=== PATIENT | male | born 1960 | race Caucasian/White ===

== ENCOUNTER 2017-01-10 09:51 | Emergency (ER) | payer OTHER ==
[2017-01-10 09:56] VITALS: BMI 27.8
--- NOTE | 2017-01-10 10:43 | PDOC ---
History of Present Illness - General Chief Complaint: Abscess Boil Stated Complaint: CYST/ GROIN Time Seen by Provider: 01/10/17 10:04 History Source: Patient Exam Limitations: No Limitations - History of Present Illness Initial Comments: CHIEF COMPLAINT: 56 y/o afebrile male with PMH DM c/o left groin abscess. HISTORY OF PRESENT ILLNESS: The patient states the abscess has been getting bigger over the last 3 days and drained a little bit of fluid today. His family member knows Dr. Manley who told him to come here and he would drain it for him. The patient does admit he has had an abscess in the past for which he was hospitalized for over 1 week. He does admit he feels feverish today. He denies chills, SALAZAR, n/v/d, CP, SOB, abd pain, back pain, streaking. Vital signs on arrival are within normal limits. REVIEW OF SYSTEMS: GENERAL/CONSTITUTIONAL: Subjective fever. No chills. No weakness. No weight change. HEAD, EYES, EARS, NOSE AND THROAT: No change in vision. No ear pain or discharge. No sore throat. CARDIOVASCULAR: No chest pain or shortness of breath. RESPIRATORY: No cough, wheezing, or hemoptysis. GASTROINTESTINAL: No abd pain, nausea, vomiting, diarrhea. GENITOURINARY: No dysuria, frequency, or change in urination. MUSCULOSKELETAL: No joint or muscle swelling or pain. No neck or back pain. SKIN: +left groin abscess. NEUROLOGIC: No headache, vertigo, loss of consciousness, or loss of sensation. PHYSICAL EXAM: GENERAL: The patient is awake, alert, and fully oriented, in no acute distress. HEAD: Normal with no signs of trauma. ENT: Pupils equal, round and reactive to light, extraocular movements intact, sclera anicteric, conjunctiva clear. Neck supple. LUNGS: Clear to auscultation bilaterally. Normal excursion. No respiratory distress or use of accessory muscles. CV: RRR, S1/S2, no MRG. Cap refill < 2 sec. ABDOMEN: Soft, non-distended, non-tender even to deep palpation, no hepatomegaly or splenomegaly, no masses. EXTREMITIES: Normal range of motion, no edema. NEUROLOGICAL: Normal speech, normal gait. CN II-XII grossly intact. SKIN: +fluctuant left groin abscess Past History - Past Medical History Allergies/Adverse Reactions: Allergies Allergy/AdvReac Type Severity Reaction Status Date / Time No Known Allergies Allergy Verified 01/10/17 09:55 Home Medications: Ambulatory Orders Amoxicillin/Potassium Clav [Augmentin 875-125 Tablet] 1 each PO BID 01/10/17 Empagliflozin [Jardiance] 25 mg PO DAILY 01/10/17 Levothyroxine [Synthroid -] 100 mcg PO DAILY 01/10/17 Linagliptin/Metformin HCl [Jentadueto 2.5 mg-1000 mg Tab] 1 each PO BID Oxycodone HCl/Acetaminophen [Percocet 5-325 mg Tablet] 1 tab PO Q6H #10 tablet MDD 5 01/10/17 Rosuvastatin Calcium [Crestor] 40 mg PO DAILY 01/10/17 Diabetes: Yes - Surgical History Cholecystectomy: Yes - Psycho/Social/Smoking Cessation Hx Anxiety: No Suicidal Ideation: No Smoking History: Never smoked Hx Alcohol Use: Yes (SOCIAL) Drug/Substance Use Hx: No Substance Use Type: None *Physical Exam - Vital Signs Last Vital Signs Temp Pulse Resp BP Pulse Ox 98.0 F 82 20 140/88 99 01/10/17 09:52 01/10/17 09:52 01/10/17 09:52 01/10/17 09:52 01/10/17 09:52 Medical Decision Making - Medical Decision Making A/P: 56 y/o with left groin abscess. Dr. Manley is coming in to the ER to I&D the abscess. Dr. Manley performed I&D of the abscess without difficulty. He states the patient is already taking Augmentin so no need for antibiotics. he would like me to send rx for Percocet for pain. Pt was instructed to return to the ER with any worsening or concerning symptoms. The patient verbalizes understanding of all instructions, has no further questions and is awaiting discharge. *DC/Admit/Observation/Transfer Diagnosis at time of Disposition: Abscess of left groin - Discharge Dispostion Disposition: HOME Condition at time of disposition: Improved - Referrals Referrals: Jacey Guerrier [Primary Care Provider] - Ted Manley MD [Staff Physician] - - Patient Instructions Printed Discharge Instructions: DI for Incision and Drainage of a Skin Abscess Additional Instructions: Discharge Instructions: -Continue taking Augmentin -A prescription for pain medication as been sent to your pharmacy; it may cause drowsiness -Follow up with Dr. Manley as instructed -Return to the ER with any worsening or concerning symptoms
[2017-01-10] MEDS ORDERED: HYDROmorphone HCL CARPU-JECT 1 MG/1 ML DISP.SYRIN ONE (11:21)
--- NOTE | 2017-01-10 12:06 | PDOC ---
*Physical Exam - Vital Signs Last Vital Signs Temp Pulse Resp BP Pulse Ox 98.0 F 82 20 140/88 99 01/10/17 09:52 01/10/17 09:52 01/10/17 09:52 01/10/17 09:52 01/10/17 09:52 Medical Decision Making - Medical Decision Making 01/10/17 12:06 Pt seen by Midlevel Provider under my direct supervision I agree with plan as outlined by Midlevel Provider *DC/Admit/Observation/Transfer Diagnosis at time of Disposition: Abscess of groin, left - Discharge Dispostion Disposition: HOME Condition at time of disposition: Improved - Prescriptions Prescriptions: Oxycodone HCl/Acetaminophen [Percocet 5-325 mg Tablet] 1 tab PO Q6H #10 tablet MDD 5 - Referrals Referrals: Ted Manley MD [Staff Physician] - Jacey Guerrier [Primary Care Provider] - - Patient Instructions Printed Discharge Instructions: DI for Incision and Drainage of a Skin Abscess Additional Instructions: Discharge Instructions: -Continue taking Augmentin -A prescription for pain medication as been sent to your pharmacy; it may cause drowsiness -Follow up with Dr. Manley as instructed -Return to the ER with any worsening or concerning symptoms - Post Discharge Activity
[2017-01-10 12:07] VITALS: BP 107/69; PULSE 72; TEMP 98
[2017-01-10] MEDS ORDERED: HYDROmorphone HCL CARPU-JECT 1 MG/1 ML DISP.SYRIN IM ONE (12:08)
--- NOTE | 2017-01-10 12:36 | CONSULT ---
Consult Consult Specialty:: Surgery Reason for Consultation:: Right groin abscess and pain - History of Present Illness History of Present Illness: 56 male presents to the ER for right groin pain, redness and some purulent discharge States that he had a similar episode in the past for which he was incised and drained and had to be hospitalized for 8-10 days Denies fevers/chills + History of Diabetes Mellitus - History Source History Provided By: Patient, Family Member, Medical Record Limitations to Obtaining History: No Limitations - Past Medical History Endocrine: Yes: Diabetes Mellitus - Alcohol/Substance Use Hx Alcohol Use: Yes (SOCIAL) - Smoking History Smoking history: Never smoked - Social History ADL: Independent Home Medications - Allergies Allergies/Adverse Reactions: Allergies Allergy/AdvReac Type Severity Reaction Status Date / Time No Known Allergies Allergy Verified 01/10/17 09:55 - Home Medications Home Medications: Ambulatory Orders Amoxicillin/Potassium Clav [Augmentin 875-125 Tablet] 1 each PO BID 01/10/17 Empagliflozin [Jardiance] 25 mg PO DAILY 01/10/17 Levothyroxine [Synthroid -] 100 mcg PO DAILY 01/10/17 Linagliptin/Metformin HCl [Jentadueto 2.5 mg-1000 mg Tab] 1 each PO BID Oxycodone HCl/Acetaminophen [Percocet 5-325 mg Tablet] 1 tab PO Q6H #10 tablet MDD 5 01/10/17 Rosuvastatin Calcium [Crestor] 40 mg PO DAILY 01/10/17 Family Disease History - Family Disease History Family History: Unremarkable Review of Systems - Review of Systems Constitutional: denies: Chills, Fever Eyes: reports: No Symptoms HENT: reports: No Symptoms Neck: reports: No Symptoms Cardiovascular: denies: Chest Pain Respiratory: denies: Cough Gastrointestinal: denies: Abdominal Pain Genitourinary: reports: No Symptoms Integumentary: reports: No Symptoms Neurological: denies: Change in LOC Pain Intensity: 4 Physical Exam Vital Signs: Vital Signs Temperature 98 F 01/10/17 12:06 Pulse Rate 72 01/10/17 12:06 Respiratory Rate 18 01/10/17 12:06 Blood Pressure 107/69 01/10/17 12:06 O2 Sat by Pulse Oximetry (%) 97 01/10/17 12:06 Constitutional: Yes: Calm Eyes: Yes: WNL HENT: Yes: WNL Neck: Yes: Supple Cardiovascular: Yes: Regular Rate and Rhythm Respiratory: Yes: Regular Gastrointestinal: Yes: Soft. No: Tenderness, Tenderness, Rebound Integumentary: Yes: Other (Right groin: + erythema, fluctuance, purulent discharge, tenderness + Abscess cavity with drainage Aprroximately 2cm x 3cm) Neurological: Yes: Alert, Oriented Problem List - Problems (1) Abscess of groin, right Code(s): L02.214 - CUTANEOUS ABSCESS OF GROIN Assessment/Plan 56 male with right groin abscess Incised and drained in ER- see procedure note Antibiotics and pain medication had been ordered Daily wound packing
--- NOTE | 2017-01-10 12:37 | PROC ---
Incision and Drainage Indication/Location: Right groin Risks and Benefits Explained: Yes Consent on Chart: Yes Betadine cleansed: Yes Anesthesia: 1% Lidocaine w/ Epi Blade Size: 15 Drainage: + purulent drainage Iodinated Packin/4 in Sterile Dressing Applied: Yes - Remarks Remarks: Tolerated procedure well
== END 2017-01-10 12:24 | disposition home or self-care (01) ==
LOC: JERFT 09:51
PROC: 0J9C0ZZ Drainage of Pelvic Region Subcutaneous Tissue and Fascia, Open Approach (ICD-10-PCS; principal; 2017-01-10)
PROC: 3E023NZ Introduction of Analgesics, Hypnotics, Sedatives into Muscle, Percutaneous Approach (ICD-10-PCS; 2017-01-10)
DX: L02.214 Cutaneous abscess of groin (principal); E11.9 Type 2 diabetes mellitus without complications; Z79.84 Long term (current) use of oral hypoglycemic drugs
CPT/HCPCS: 87070; 87186; 87205; 99282-25